=== PATIENT | female | born 1955 | race Caucasian/White ===

== ENCOUNTER → 2022-12-10 | Day surgery (SDC) | payer MEDICARE ==
[~2022-12-10] MED LIST: Lidocaine 1% PF 5 ML VIAL ONE; Sodium Bicarbonate 2.5 MEQ/5 ML VIAL ONE
== END ==
LOC: CSHULT 07:09
PROVIDERS: ATTEND Otolaryngology Plastic Surgery within the Head & Neck
PROC: 0G9G3ZX Drainage of Left Thyroid Gland Lobe, Percutaneous Approach, Diagnostic (ICD-10-PCS; principal; 2022-12-10)
DX: E04.1 Nontoxic single thyroid nodule (principal)
CPT/HCPCS: 60100; 76942; 88173; 88305

== ENCOUNTER 2022-12-18 11:28 | Day surgery (SDC) | payer MEDICARE ==
[2022-12-17 08:36] VITALS: BMI 47.0
[2022-12-17 09:09] LABS: Hematocrit 39.9 % (34.9-44.5); Hemoglobin 13.1 g/dL (12.0-15.5); Mean Corpuscular HGB CONC 32.8 g/dL (32.0-36.0); Mean Corpuscular Hemoglobin 30.4 pg (27.0-33.0); Mean Corpuscular Volume 92.6 fl (81.6-98.3); Mean Platelet Volume 9.6 fl (7.4-10.4); Platelet Count 195 10x3/uL (150-450); RBC Distribution Width 13.6 % (11.5-14.5); Red Blood Cell (RBC) Count 4.31 10x6/uL (3.90-5.03)
[2022-12-18] MEDS ORDERED: CeleCOXIB 100 MG CAP ONE (11:54)
[2022-12-18] MEDS ORDERED: Famotidine/PF 20 mg/2ml Vial ONE (11:55)
[2022-12-18] MEDS ORDERED: Gabapentin 300 MG CAP ONE (11:55)
[2022-12-18] MEDS ORDERED: Bupivacaine PF 0.5% 30 ML VIAL ONE (12:04)
[2022-12-18] MEDS ORDERED: EPINEPHrine 1 MG/ML AMP ONE (12:05)
[2022-12-18 12:34] LABS: Anion Gap 14 mmol/L (10-20); BUN (Urea Nitrogen) 15 mg/dL (9.8-20.1); Calc. Creatinine Clearance 126 mL/min (70-130); Calcium 9.3 mg/dL (7.8-10.44); Carbon Dioxide 24 mmol/L (23-31); Chloride 105 mmol/L (98-107); Estimated GFR 81; Glucose 94 mg/dL (80-115); Potassium 4.1 mmol/L (3.5-5.1); Sodium 139 mmol/L (136-145)
[2022-12-18] MEDS ORDERED: PROPOFOL 40 ML ONE (12:38)
[2022-12-18] MEDS ORDERED: Glycopyrrolate 0.2 MG/ML 5 ML SYRINGE ONE (12:39)
[2022-12-18] MEDS ORDERED: Fentanyl 250 MCG/5 ML VIAL ONE (12:39)
[2022-12-18] MEDS ORDERED: Rocuronium Bromide 10 MG/ML (10ML VIAL) ONE (12:39)
[2022-12-18] MEDS ORDERED: Dexamethasone 4 mg/ml Vial ONE (12:39)
[2022-12-18] MEDS ORDERED: PHENYLEPHRINE-NS 100 MCG/ML 10 ML SYRINGE ONE (12:39)
[2022-12-18] MEDS ORDERED: Ketorolac Tromethamine 30 MG/ML VIAL ONE (12:39)
[2022-12-18] MEDS ORDERED: Ondansetron PF 4 MG/2 ML Vial ONE (12:39)
[2022-12-18] MEDS ORDERED: Lidocaine 2% PF 5 ML VIAL ONE (12:39)
[2022-12-18] MEDS ORDERED: CEFAZOLIN 2 GM VIAL ONE (12:42)
[2022-12-18] MEDS ORDERED: Scopolamine 1.5 mg/72 hour Patch ONE (12:50)
[2022-12-18] MEDS ORDERED: SUGAMMADEX SODIUM 200 MG/2 ML VIAL ONE (14:37)
== END 2022-12-18 16:45 | disposition home or self-care (01) ==
LOC: CSHSDC 11:28
PROVIDERS: ATTEND Student in an Organized Health Care Education/Training Program
PROC: 0UB64ZZ Excision of Left Fallopian Tube, Percutaneous Endoscopic Approach (ICD-10-PCS; principal; 2022-12-18)
PROC: 0UB14ZZ Excision of Left Ovary, Percutaneous Endoscopic Approach (ICD-10-PCS; 2022-12-18)
DX: D27.1 Benign neoplasm of left ovary (principal); M19.90 Unspecified osteoarthritis, unspecified site; E07.9 Disorder of thyroid, unspecified; E66.9 Obesity, unspecified; Z68.42 Body mass index [BMI] 45.0-49.9, adult; Z88.2 Allergy status to sulfonamides; Z90.89 Acquired absence of other organs; Z96.659 Presence of unspecified artificial knee joint; Z79.890 Hormone replacement therapy
CPT/HCPCS: 36415; 80048; 85027; 86850; 86900; 86901; 88112; 88307; J0171; J1100; J1885; J2001; J2405; J2704; J3010; S0020; S0028

== ENCOUNTER 2023-02-21 12:51 | Outpatient (CLI) | payer MEDICARE | END 2023-02-21 12:52 | disposition home or self-care (01) | LOC: CSHMRI 12:51 | PROVIDERS: ATTEND Neurological Surgery | DX: M48.062 Spinal stenosis, lumbar region with neurogenic claudication (principal); M47.816 Spondylosis without myelopathy or radiculopathy, lumbar region | CPT/HCPCS: 72148 ==

== ENCOUNTER 2025-03-02 08:47 | Outpatient (CLI) | payer MEDICARE | END 2025-03-02 08:48 | disposition home or self-care (01) | LOC: CSHSLEEP 08:47 | PROVIDERS: ATTEND Family Medicine | DX: G47.33 Obstructive sleep apnea (adult) (pediatric) (principal); R53.83 Other fatigue; E66.9 Obesity, unspecified; Z68.42 Body mass index [BMI] 45.0-49.9, adult; R06.83 Snoring; G47.00 Insomnia, unspecified | CPT/HCPCS: 95800 ==